=== PATIENT | male | born 1990 | race Two or more races ===

== ENCOUNTER 2023-10-08 09:38 | Outpatient (AMB) | payer OTHER, SELFPAY ==
--- NOTE | 2023-10-08 09:40 | AM.OFFWIN_ITS ---
Intake Vital Signs 3 10/08/23 09:47 Height 5 ft 7 in Weight 202 lb BMI 31.6 BP 120/80 Blood Pressure Location Lt brachial Position Sitting Pulse 111 H Pulse Source Pulse Oximeter Pulse Oximetry (%) 98 Oxygen Delivery Method Room Air Oxygen Flow Rate 97.3 Intake Visit Reasons: EP ?[facility] Intake Note: pt is here today for pink eye started yesterday Patient Tobacco Use Status: Never used Tobacco Allergies No Known Allergies Allergy (Verified 10/08/23 09:51) Medication List - Last Reconciled 10/08/23 by Ila Kumar MD No Known Home Meds Do you need a note to return to daycare/school/sports/work: Yes HPI EP ?[facility] 2 HPI0 Details Patient is a 33-year-old gentleman who wear contact lenses Came in because he is having tearing in his left eye and pain Patient says that it started yesterday On examination he has developed a small corneal abrasion left eye Pupils are reactive to light EOMI intact I am treating him with Polytrim eyedrops, patient is to get eye patch from pharmacy He is to return on Wednesday for follow-up I have also encouraged patient to book appointment with his eye doctor as soon as possible. No more contact lenses until feeling better Note given to be off work until Wednesday PFSH Family History Mother Diabetes Anxiety Arthritis TIA (transient ischemic attack) Father Anxiety Arthritis Social History Housing: House Alcohol intake: current Alcohol intake frequency: holidays/special occasions only Patient Tobacco Use Status: Never used Tobacco e-Cigarette/Vaping Use: Never Used Substance Use Type: Marijuana Current occupational status: employed Current occupation: CAR [employer] Cognitive needs: No Hearing needs: No Vision needs: Yes Review of Systems Const All systems reviewed & are unremarkable except as noted in HPI and below Physical Exam Vital Signs: Last Vital Signs Pulse 111 H 10/08/23 09:47 BP 120/80 10/08/23 09:47 Pulse Ox 98 10/08/23 09:47 Oxygen Delivery Method Room Air 10/08/23 09:47 Oxygen Flow Rate 97.3 10/08/23 09:47 BMI result Body Mass Index 31.6 Const General: no acute distress Orientation/consciousness: patient oriented x3 Eyes Eyes/upper lids images: 2 1. Small round corneal abrasion left eye, conjunctiva injected Clear discharge from eye, patient uncomfortable with light, PERRLA, EOMI Resp Effort & Inspection: normal respiratory effort and able to speak in complete sentences Neuro General: patient oriented x3 Psych Mental Status: mental status grossly normal Assessment & Plan Assessment & Plan (1) Corneal abrasion of left eye due to contact lens: Code(s): H18.822 - Corneal disorder due to contact lens, left eye Plan Patient is a 33-year-old gentleman who wear contact lenses Came in because he is having tearing in his left eye and pain Patient says that it started yesterday On examination he has developed a small corneal abrasion left eye Pupils are reactive to light EOMI intact I am treating him with Polytrim eyedrops, patient is to get eye patch from pharmacy He is to return on Wednesday for follow-up I have also encouraged patient to book appointment with his eye doctor as soon as possible. No more contact lenses until feeling better Note given to be off work until Wednesday Medications: New 2 polymyxin B sulf-trimethoprim 10,000 unit- 1 mg/mL while awake; do not exceed 6 doses in 24 hours 1 drp ophthalmic (eye) Q3H 10 mL 0RF 7 days Coding Level of Care Code Est Pt Level 4 (11006) Diagnoses Corneal abrasion of left eye due to contact lens H18.822
[2023-10-08 09:47] VITALS: BP 120/80; PULSE 111; O2SAT 98; BMI 31.6
== END 2023-10-08 10:18 | disposition home or self-care (01) ==
PROVIDERS: PCP Physician Assistant; Visit Provider Internal Medicine
DX: H18.822 Corneal disorder due to contact lens, left eye (principal)
CPT/HCPCS: 99214

== ENCOUNTER 2024-06-28 10:31 | Outpatient (AMB) | payer BC, SELFPAY ==
[2024-06-28 10:34] VITALS: BP 108/82; PULSE 80; TEMP 36.3; O2SAT 98; BMI 30.2
--- NOTE | 2024-06-28 10:34 | A.OFFPC_ITS ---
Vital Signs 06/28/24 10:34 Height 5 ft 7 in Weight 193 lb BMI 30.2 BP 108/82 Blood Pressure Location Lt brachial Position Sitting Pulse 80 Pulse Source Pulse Oximeter Temp 97.3 F Temp Source Temporal Artery Scan Pulse Oximetry (%) 98 Oxygen Delivery Method Room Air Intake Visit Reasons: PE Intake Note: Patient is here today for a physical. 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 Accompanied by: Self / Same As Patient Allergies No Known Allergies Allergy (Verified 06/28/24 10:44) Medication List - Last Reconciled 06/28/24 by Codey Castaneda PA-C polymyxin B sulf-trimethoprim 10,000 unit- 1 mg/mL 1 drp ophthalmic (eye) Q3H 7 days Tobacco use date assessed: 06/28/24 Dental Screening Dental Screen Date: 06/28/24 Did you have a dental visit in the last 12 months?: Yes Did you have a dental problem in the last 6 months where you did not have access to dental care?: No Was dental information given to patient?: Patient has dentist HPI PE HPI Details Patient is a 34-year-old male here today for routine annual physical. Patient has a past medical history significant for GERD, obesity. Concerns--> reports having lower back and pelvic pain over last several weeks. He reports he can feel a pinching in his lower back and sometimes have radicular symptoms down his right lower leg. He is still pretty mobile and physically active though would like evaluation and treatment for his lower back issue. .. Obesity: Has lost weight since last office visit. BMI still remains about 30. He will continue working on lifestyle and dietary modifications. .. GERD: He does report his GERD symptoms have nearly resolved with a change in his diet. He does not use any antacids anymore. Vaccine: Up-to-date with tetanus vaccine, up-to-date with COVID vaccine, UTD with FLu PFSH Family History Mother Diabetes Anxiety Arthritis TIA (transient ischemic attack) Father Anxiety Arthritis Social History (Updated 06/28/24 @ 10:45 by Codey Castaneda PA-C) Housing: House Alcohol intake: current Alcohol intake frequency: holidays/special occasions only Patient Tobacco Use Status: Never used Tobacco e-Cigarette/Vaping Use: Never Used Substance Use Type: Marijuana service: No Current occupational status: employed Current occupation: [employer] Cognitive needs: No Hearing needs: No Vision needs: Yes Questionnaire PHQ-9 Over the last 2 weeks, how often have you been bothered by any of the following problems? 1. Little interest or pleasure in doing things: not at all 2. Feeling down, depressed, or hopeless: not at all 3. Trouble falling or staying asleep, or sleeping too much: not at all 4. Feeling tired or having little energy: not at all 5. Poor appetite or overeating: not at all 6. Feeling bad about yourself - or that you are a failure or have let yourself or your family down: not at all 7. Trouble concentrating on things, such as reading the newspaper or watching television: not at all 8. Moving or speaking so slowly that other people could have noticed. Or the opposite - being so fidgety or restless that you have been moving around a lot more than usual: not at all 9. Thoughts that you would be better off or of hurting yourself in some way: not at all Total score: 0 Depression Screening Interpretation: Negative Depression Screening Done: Yes 80231 - PHQ-9 Billing: Yes Source: Developed by Drs. Clay Babcock, Mabel Villatoro, August Beard and colleagues, with an educational zoë from [employer]. Thrive Questionnaire Date Thrive assessed: 06/28/24 I am a: Patient What is your living situation today?: I choose not to answer this question Within the past 12 months, did the food you bought not last and you didn't have the money to get more?: I choose not to answer this question Within the past 12 months, did you worry whether your food would run out before you got money to buy more?: I choose not to answer this question Do you have trouble paying for medicines?: No Do you have trouble getting transportation to medical appointments?: No Do you have trouble paying your heating and electricity bill?: No Do you have trouble taking care of your child, family member or friend?: No Do you have trouble with day-to-day activities such as bathing, preparing meals, shopping, managing finances, etc.?: No Are you currently unemployed and looking for a job?: No Are you interested in more education?: No Please select the resources that you would like help with: None Currently or been in a relationship where the following occur: I choose not to answer THRIVE Score: 0 AUDIT C Alcohol Use Questionnaire (AUDIT-C) 1. How often do you have a drink containing alcohol?: Never 3. How often do you have six or more drinks on one occasion?: Never Total Score: 0 PATRICK-7 AMB Questionnaire PATRICK-7 Date PATRICK - 7 assessed: 06/28/24 Feeling nervous, anxious, or on edge: 0 = Not at all Not being able to stop or control worryin = Not at all Worrying too much about different things: 0 = Not at all Trouble relaxin = Not at all Being so restless that it is hard to sit still: 0 = Not at all Becoming easily annoyed or irritable: 0 = Not at all Feeling afraid as if something awful might happen: 0 = Not at all Total PATRICK-7 score (0-4 normal; 5-9 mild; 10-14 moderate; 15-21 severe): 0 Source: Developed by Drs. Clay Babcock, Mabel Villatoro, August Beard and colleagues, with an educational zoë from [employer]. PATRICK-7 Assessment Billing PATRICK-7 Assessment Tool: PATRICK-7 Assessment 92502 Review of Systems Const Denies body aches, Denies chills, Denies excessive sweating, Denies fatigue, Denies fever(s) and Denies headache(s) Eyes Denies blurry vision ENT Denies dysphagia, Denies vertigo, Denies dizziness, Denies headache(s), Denies hearing loss and Denies tinnitus Card Denies chest pain, Denies chest pain with activity, Denies syncope, Denies irregular heart rhythm and Denies dyspnea Resp Denies chest congestion, Denies cough, Denies hemoptysis, Denies dyspnea and Denies wheezing GI Denies abdominal pain, Denies melena, Denies hematochezia, Denies coffee ground emesis, Denies dysphagia, Denies diarrhea, Denies nausea and Denies vomiting Denies difficulty urinating, Denies dysuria, Denies urinary frequency, Denies urinary hesitancy and Denies urinary urgency Musc Denies arthralgias, Denies limited range of motion, Denies muscle cramps and Denies muscle weakness Skin/Breast Denies rash and Denies skin ulcer Neuro Denies Abnormal speech present, Denies confusion, Denies vertigo, Denies dizziness, Denies syncope, Denies headache(s), Denies memory loss and Denies seizure-like activity Psych Denies anxiety, Denies confusion, Denies depression, Denies memory loss, Denies panic attacks and Denies paranoia Endo Denies excessive sweating, Denies fatigue, Denies flushing, Denies polydipsia and Denies polyuria Aller/Immun Denies wheezing Physical exam (Primary Care) Vital Signs: Last Vital Signs Temp 97.3 F 06/28/24 10:34 Pulse 80 06/28/24 10:34 BP 108/82 06/28/24 10:34 Pulse Ox 98 06/28/24 10:34 Oxygen Delivery Method Room Air 06/28/24 10:34 BMI result Body Mass Index 30.2 Tobacco/Smoking Status: Tobacco use Status Tobacco use date assessed 06/28/24 06/28/24 10:44 Patient Tobacco Use Status Never used Tobacco 06/28/24 10:45 e-Cigarette/Vaping Use Never Used 06/28/24 10:45 PHQ-9: PHQ-9 Score PHQ-9: Total score 0 06/28/24 10:43 Depression Screening Interpretation: Negative Thrive Assessment: Date of Thrive Assessment Date Thrive assessed 06/28/24 06/28/24 10:44 Currently or been in a relationship where the following occur: I choose not to answer Const General: cooperative, comfortable, no acute distress, alert and awake; No confusion Orientation/consciousness: oriented to person, oriented to place, patient oriented x3 and No confusion HENMT Head: Yes normocephalic Ears: external ears normal and TM's normal bilaterally Face and sinus: No sinus tenderness Mouth: Normal oral and palatal mucosa present and tongue normal Teeth and gingiva: dentition normal and gingiva normal Throat: Yes posterior oropharynx normal, Yes tonsils normal and Yes uvula midline Eyes Conjunctivae: conjunctivae normal Sclerae: sclerae normal Pupils: Equal, round and reactive pupils present EOM: EOMs intact bilaterally Direct Ophthalmoscopy: No no photophobia Neck Neck: Yes no lymphadenopathy, No tender and Yes no JVD Thyroid: Thyroid normal Carotids: no bruits Chest Chest palpation & inspection: no tenderness Resp Effort & Inspection: normal respiratory effort, no audible wheezes, not labored and no stridor Auscultation: no crackles, no rales, no rhonchi and no wheezes Cardio Jugular venous distension: no JVD Rate: regular rate, not bradycardic and not tachycardic Rhythm: regular rhythm Bruits: no carotid bruits Peripheral pulses: Peripheral pulses 2+ throughout GI Inspection: Yes normal to inspection, No abdominal wall ecchymosis and No visible herniation Palpation (GI): Soft to palpation, nontender, no guarding, not rigid and No hepatosplenomegaly present Auscultation: normoactive bowel sounds General: Yes no CVA tenderness Back/Spine/Pelvis Back: no CVA tenderness and No back tenderness Cervical Spine: cervical ROM normal Thoracic/Lumbar Spine: thoracic and lumbar spine normal to inspection, straight leg raise negative bilaterally, No thoraco-lumbar ROM limited and No lumbar spinal tenderness Skin Lesions: no lesions Rashes: no rashes Wounds: no wounds Neuro General: oriented to person, oriented to place, patient oriented x3, CN's II-XI intact bilaterally and No confusion Cranial nerves: Yes Equal, round and reactive pupils present and Yes Normal accommodation reflex present Cognition (Neuro): normal cognition Speech: No Abnormal speech present Gait exam (Neuro): Normal gait present Motor exam (neuro): 5/5 motor strength present throughout Extrem Right upper extremity: full ROM; no cyanosis Left upper extremity: full ROM; no cyanosis Right lower extremity: no edema Left lower extremity: no edema Psych Appearance: grossly normal Mental Status: mental status grossly normal Affect: normal affect Attitude: cooperative Thought process: Normal thought process present Office Procedures Flu Questionnaire Does the patient have a severe egg allergy?: No Does the patient have severe life threatening allergies?: No Does the patient have a fever or illness today?: No Has the patient ever had Guillain-Gotham Syndrome?: No Has the patient ever had any past reaction to a flu shot?: No Immunizations Fluarix Triv [id number] (PF) 45 mcg (15 mcg x 3)/0.5 mL IM syringe Performing Provider: Codey Castaneda PA-C Per[facility] Administered by: JASE Moore on 06/28/24 10:42 Dose Route Admin Location Dispensed Lot Number Expiration Date NDC Slot Shift Supervisor 0.5 mL IM Left Deltoid 0.5 mL [id number] 11/20/24 03146-991-24 Cloakroom VIS Given Date VIS Provided VIS Publication Date 06/28/24 Single Vaccine 20 Eligibility Eligibility Date Funding Source Not [facility] Eligible 06/28/24 Private Coding Level of Care Code Est Pt Prev Care 18-39y(29252) Diagnoses Annual physical exam Z00.00 Lumbosacral radiculitis M54.17 PATRICK (generalized anxiety disorder) F41.1 Class 1 obesity E66.811 Additional Codes PATRICK-7 Assessment Billing - PATRICK-7 Assessment Tool: PATRICK-7 Assessment 69555 ([id number]) PHQ-9 - 12757 - PHQ-9 Billing: Yes ([id number]) Assessment & Plan Assessment & Plan (1) Annual physical exam: Code(s): Z00.00 - Encounter for general adult medical examination without abnormal findings Category: Medical Plan: per HPI (2) Lumbosacral radiculitis: Code(s): M54.17 - Radiculopathy, lumbosacral region Category: Medical Plan: Patient reports a few week history lower lumbar and sacral area pain. At times gets a pinching sensation in pain going down his right lower extremity. Will supply patient with meloxicam 15 mg to use as needed for the inflammation. Some of his symptoms are consistent with a sacroiliitis. He would likely benefit from physical therapy (3) PATRICK (generalized anxiety disorder): Code(s): F41.1 - Generalized anxiety disorder Category: Medical Plan: Patient's PATRICK-7 score 0, he reports his anxiety has been much better as of late without any medication. (4) Class 1 obesity: Code(s): E66.811 - Obesity, class 1 Category: Medical Plan: Patient's BMI is slightly above 30. Has been able to reduce his weight since last office visit. He will continue working on lifestyle and dietary modifications to continue losing weight. He does play basketball several times a week. Orders: Orders Influenza [id number] Immunization Today Z23 - Encounter for immunization Comprehensive [place]. Panel Fast Today Z13.1 - Encounter for screening for diabetes mellitus XR sacroiliac joint min 3V Today M46.1 - Sacroiliitis, not elsewhere classified, M54.17 - Radiculopathy, lumbosacral region Complete Blood Count no Diff Today Z13.1 - Encounter for screening for diabetes mellitus PT Evaluation and Treatment Today M54.17 - Radiculopathy, lumbosacral region XR lumbar spine 2-3V Today M54.17 - Radiculopathy, lumbosacral region Medications: New meloxicam 15 mg PO DAILY PRN 30 tabs 1RF pain 30 days M54.17 - Radiculopathy, lumbosacral region
== END 2024-06-28 10:59 | disposition home or self-care (01) ==
PROVIDERS: PCP Physician Assistant; Visit Provider Physician Assistant
DX: Z00.00 Encounter for general adult medical examination without abnormal findings (principal); E66.811 Obesity, class 1; Z68.30 Body mass index [BMI] 30.0-30.9, adult; M54.17 Radiculopathy, lumbosacral region; F41.1 Generalized anxiety disorder; Z23 Encounter for immunization

== ENCOUNTER → 2024-06-28 10:31 | Outpatient (BNVA) | payer BC, SELFPAY | PROVIDERS: PCP Physician Assistant; Visit Provider Physician Assistant | DX: Z00.00 Encounter for general adult medical examination without abnormal findings (principal); Z23 Encounter for immunization; M54.17 Radiculopathy, lumbosacral region; F41.1 Generalized anxiety disorder; E66.811 Obesity, class 1; Z68.30 Body mass index [BMI] 30.0-30.9, adult; K21.9 Gastro-esophageal reflux disease without esophagitis | CPT/HCPCS: 90471; 90656; 96127 ==